=== PATIENT | female | born 1975 | race Caucasian/White ===

== ENCOUNTER 2022-04-23 09:43 | Outpatient (CLI) | payer BC | END 2022-04-23 09:44 | disposition home or self-care (01) | LOC: SCSMRI 09:43 | PROVIDERS: ATTEND Anesthesiology Pain Medicine | DX: M50.122 Cervical disc disorder at C5-C6 level with radiculopathy (principal); M50.123 Cervical disc disorder at C6-C7 level with radiculopathy | CPT/HCPCS: 72141 ==

== ENCOUNTER 2022-09-20 12:45 | Outpatient (CLI) | payer BC | END 2022-09-20 12:46 | disposition home or self-care (01) | LOC: BICCT 12:45 | PROVIDERS: ATTEND Surgery | DX: M48.02 Spinal stenosis, cervical region (principal); M50.20 Other cervical disc displacement, unspecified cervical region; M47.812 Spondylosis without myelopathy or radiculopathy, cervical region; E04.1 Nontoxic single thyroid nodule | CPT/HCPCS: 72125 ==

== ENCOUNTER 2023-02-06 11:28 | Outpatient (CLI) | payer BC ==
[2023-02-06 12:38] LABS: Hematocrit 42.4 % (34.9-44.5); Hemoglobin 14.4 g/dL (12.0-15.5); Mean Corpuscular Volume 94.2 fl (81.6-98.3); Mean Platelet Volume 9.6 fl (7.4-10.4); Platelet Count 309 10x3/uL (150-450); RBC Distribution Width 12.2 % (11.5-14.5); White Blood Cell (WBC) Count 7.1 10x3/uL (3.5-10.5)
[2023-02-06 12:58] LABS: INR-International Normal Ratio 0.9
[2023-02-06 13:03] LABS: Anion Gap 13 mmol/L (10-20); BUN (Urea Nitrogen) 12 mg/dL (7.0-18.7); Calc. Creatinine Clearance 0 mL/min (70-130); Calcium 9.2 mg/dL (7.8-10.44); Carbon Dioxide 24 mmol/L (22-29); Chloride 102 mmol/L (98-107); Estimated GFR 95; Glucose 81 mg/dL (70-105); Potassium 4.3 mmol/L (3.5-5.1); Sodium 135 mmol/L (136-145)
== END 2023-02-06 11:29 | disposition home or self-care (01) ==
LOC: LABBT 11:28
PROVIDERS: ATTEND Surgery
DX: Z01.818 Encounter for other preprocedural examination (principal); M50.10 Cervical disc disorder with radiculopathy, unspecified cervical region
CPT/HCPCS: 80048; 85027; 85610; 85730; 93005; 93010

== ENCOUNTER 2023-02-11 06:16 | Observation (INO) | payer BC ==
[2023-02-06 11:54] VITALS: BMI 26.9
[2023-02-11] MEDS ORDERED: Thrombin 5000 UNITS/5 ML VIAL ONE (06:53)
[2023-02-11] MEDS ORDERED: Sodium Chloride 0.9% 100 ML ONE (07:09)
[2023-02-11] MEDS ORDERED: CEFAZOLIN 2 GM VIAL ONE (07:09)
[2023-02-11] MEDS ORDERED: Famotidine/PF 20 mg/2ml Vial ONE (07:22)
[2023-02-11] MEDS ORDERED: fentaNYL PF 100 MCG/2 ML SYRINGE ONE (07:22)
[2023-02-11] MEDS ORDERED: Dexamethasone 20 MG/5 ML VIAL ONE (07:30)
[2023-02-11] MEDS ORDERED: Rocuronium Bromide 10 MG/ML (10ML VIAL) ONE (07:30)
[2023-02-11] MEDS ORDERED: Ketorolac Tromethamine 30 MG/ML VIAL ONE (07:30)
[2023-02-11] MEDS ORDERED: Ondansetron PF 4 MG/2 ML Vial ONE (07:30)
[2023-02-11] MEDS ORDERED: Lidocaine 1% PF 5 ML VIAL ONE (07:30)
[2023-02-11] MEDS ORDERED: ePHEDrine Sulfate 50 MG/10 ML VIAL ONE (07:30)
[2023-02-11] MEDS ORDERED: PROPOFOL 200 MG/20 ML VIAL ONE (07:30)
[2023-02-11] MEDS ORDERED: HYDROmorphone 2 MG/ML VIAL ONE (08:51)
[2023-02-11] MEDS ORDERED: SUGAMMADEX SODIUM 200 MG/2 ML VIAL ONE (09:02)
[2023-02-11] MEDS ORDERED: Promethazine HCl 25 MG/ML VIAL IM PRN (09:10)
[2023-02-11] MEDS ORDERED: HYDROmorphone 2 MG/ML VIAL SLOW IVP PRN (09:10)
[2023-02-11] MEDS ORDERED: Meperidine HCl/PF 25 MG/ML VIAL SLOW IVP PRN (09:10)
[2023-02-11] MEDS ORDERED: Ondansetron HCl/PF 4 MG/2 ML Vial IVP PRN (09:10)
[2023-02-11] MEDS ORDERED: Ondansetron PF 4 MG/2 ML Vial IVP PRN (09:45)
[2023-02-11] MEDS ORDERED: Acetaminophen/Codeine 30-300mg Tablet PO PRN (09:45)
[2023-02-11] MEDS ORDERED: diphenhydrAMINE 25 MG CAP PO PRN (09:45)
[2023-02-11] MEDS ORDERED: Ketorolac Tromethamine 30 MG/ML VIAL IVP PRN (09:45)
[2023-02-11] MEDS ORDERED: Acetaminophen 325 MG TAB PO PRN (09:45)
[2023-02-11] MEDS ORDERED: traMADol HCl 50 MG TAB PO PRN (09:45)
[2023-02-11] MEDS ORDERED: Benzocaine/Menthol 1 LOZ LOZ PO PRN (09:46)
[2023-02-11] MEDS ORDERED: Phenol 177 ML BOT PO PRN (09:46)
[2023-02-11] MEDS ORDERED: tiZANidine HCl 4 MG TAB PO PRN (09:46)
[2023-02-11] MEDS ORDERED: HYDROmorphone 0.5 MG/0.5 ML SYRINGE ONE (09:59)
[2023-02-11] MEDS ORDERED: fentaNYL 50 mcg/mL 1 mL Vial ONE (10:18)
[2023-02-11] MEDS: HYDROcodone/Acetaminophen 7.5/325 mg Tablet PO PRN ×2 (12:15→18:02)
[2023-02-11] MEDS: CEFAZOLIN 2 GM in Sodium Chloride 0.9% 100 ML IVPB SCH ×2 (13:27→20:27)
[2023-02-11] MEDS: Sodium Chloride 0.9% 1,000 ML IV SCH ×2 (18:03→23:53)
[2023-02-11] MEDS: Morphine 2 MG/ML VIAL SLOW IVP PRN (22:09)
[2023-02-12] MEDS: HYDROcodone/Acetaminophen 7.5/325 mg Tablet PO PRN ×2 (02:42→10:04)
[2023-02-12] MEDS: Morphine 2 MG/ML VIAL SLOW IVP PRN (04:26)
[2023-02-12] MEDS: CEFAZOLIN 2 GM in Sodium Chloride 0.9% 100 ML IVPB SCH (05:37)
[2023-02-12 08:00] VITALS: BP 150/86; TEMP 97.9
== END 2023-02-12 11:10 | disposition home or self-care (01) ==
LOC: SDC 06:16 → SURG A 09:43
PROVIDERS: ADMIT Surgery; ATTEND Surgery
PROC: 0RG20A0 Fusion of 2 or more Cervical Vertebral Joints with Interbody Fusion Device, Anterior Approach, Anterior Column, Open Approach (ICD-10-PCS; principal; 2023-02-11)
PROC: 0RG2070 Fusion of 2 or more Cervical Vertebral Joints with Autologous Tissue Substitute, Anterior Approach, Anterior Column, Open Approach (ICD-10-PCS; 2023-02-11)
DX: M48.02 Spinal stenosis, cervical region (principal); M50.20 Other cervical disc displacement, unspecified cervical region; M54.12 Radiculopathy, cervical region; F17.200 Nicotine dependence, unspecified, uncomplicated; Z88.6 Allergy status to analgesic agent; Z91.041 Radiographic dye allergy status
CPT/HCPCS: C1713; J1100; J1170; J1885; J2272; J2405; J2704; J3010; J3490; S0028

== ENCOUNTER 2023-03-26 12:59 | Outpatient (CLI) | payer BC | END 2023-03-26 13:00 | disposition home or self-care (01) | LOC: BICRAD 12:59 | PROVIDERS: ATTEND Surgery | DX: M54.12 Radiculopathy, cervical region (principal); Z98.1 Arthrodesis status | CPT/HCPCS: 72040 ==